=== PATIENT | female | born 1940 | race Caucasian/White ===

== ENCOUNTER → 2018-04-17 12:01 | Outpatient (REF) | payer SELFPAY ==
[2018-04-17 13:42] LABS: Abs Immature Grans 0.02 k/cumm (0.0-0.09); Absolute Basophil Count 0.05 k/cumm (0.0-0.2); Absolute Eosinophil Count 0.68 k/cumm (0.0-0.7); Absolute Lymphocyte Count 1.56 k/cumm (1.2-3.4); Absolute Monocyte Count 0.83 k/cumm (0.11-0.7); Absolute Neutrophil Count 5.26 k/cumm (1.2-6.7); Basophils % 0.6; Eosinophils % 8.1; HCT 35.4 % (36.0-46.0); HGB 11.5 g/dL (12.0-15.5); Immature Grans % 0.2; Lymphocytes % 18.6; Mean Corp. HGB Concentration 32.5 g/dL (32.0-36.0); Mean Corpuscular Hemoglobin 29.8 pg (27.0-33.0); Mean Corpuscular Volume 91.7 fL (80-95); Mean Platelet Volume 10.2 fL (8.0-11.0); Monocytes % 9.9; Neutrophils % 62.6; Platelet Count 314 x1000/uL (130-400); RBC 3.86 m/cumm (4.00-5.20)
[2018-04-17 14:00] LABS: BUN 23 mg/dL (7-18); CREATININE 1.05 mg/dL (0.55-1.02); Calcium 8.9 mg/dL (8.5-10.1); Chloride 105 mmol/L (98-107); Estimated GFR 50.56 (mL/min/1.73m2); Glucose 152 mg/dL (70-100); Magnesium 1.6 mg/dL (1.8-2.4); Potassium 4.9 mmol/L (3.5-5.1); Sodium 138 mmol/L (136-145)
== END ==
LOC: LBN 12:01
PROVIDERS: PCP Nurse Practitioner Family; Visit Provider Family Medicine
DX: E11.9 Type 2 diabetes mellitus without complications (principal); Z95.1 Presence of aortocoronary bypass graft; I48.0 Paroxysmal atrial fibrillation; I50.31 Acute diastolic (congestive) heart failure; I25.10 Atherosclerotic heart disease of native coronary artery without angina pectoris; I10 Essential (primary) hypertension
CPT/HCPCS: 80048; 83735; 85025

== ENCOUNTER → 2018-04-17 12:07 | Outpatient (CLI) | payer MEDICARE, OTHER, SELFPAY ==
--- NOTE | 2018-04-17 13:16 | DI.REPORT_ITS ---
SYMPTOMS/DIAGNOSIS: COUGH, POSTOP CABG CHEST X-RAY, PA AND LATERAL: No priors. The heart is mildly enlarged. Pulmonary vasculature is within normal limits. There are small bilateral pleural effusions. Plate atelectasis is seen in the left lingula. No pneumothorax is seen. The bones appear intact. Sternal wires are in place, as are skin sriram along the midline anterior chest. The patient has an aortic valve replacement. IMPRESSION: Small bilateral pleural effusions. Plate atelectasis in the left lingula.
== END ==
PROVIDERS: PCP Nurse Practitioner Family; Visit Provider Nurse Practitioner Family
DX: R05 Cough (principal); J90 Pleural effusion, not elsewhere classified; I51.7 Cardiomegaly; Z95.2 Presence of prosthetic heart valve; J98.11 Atelectasis
CPT/HCPCS: 71046